=== PATIENT | female | born 1955 | race Caucasian/White ===

== ENCOUNTER 2022-02-09 08:53 | Emergency (ER) | payer OTHER ==
[~2022-02-09] VITALS: Ht 172.7 cm; Wt 62.6 kg
[~2022-02-09 08:53] MED LIST: Crutch1 EACH MISC; Percocet 5-3251 EACH PO
[2022-02-09 09:30] LABS: BASOPHILS ABSOLUTE AUTO 0.05 K/mm3 (0.00-0.23); BASOPHILS PERCENT AUTO 1 % (0-2); EOSINOPHILS ABSOLUTE AUTO 0.14 K/mm3 (0.00-0.68); EOSINOPHILS PERCENT AUTO 2 % (0-6); Hematocrit 40.3 % (33.0-51.0); Hemoglobin 13.6 g/dL (11.5-16.0); IMMATURE GRAN ABSOLUTE AUTO 0.01 K/mm3 (0.00-0.10); IMMATURE GRAN PERCENT AUTO 0 % (0-1); LYMPHOCYTES ABSOLUTE AUTO 1.98 K/mm3 (0.84-5.20); LYMPHOCYTES PERCENT AUTO 27 % (21-46); MONOCYTES ABSOLUTE AUTO 0.56 K/mm3 (0.16-1.47); MONOCYTES PERCENT AUTO 8 % (4-13); Mean Corpuscular HGB 31.3 pg (26.0-34.0); Mean Corpuscular HGB Conc 33.7 g/dL (31.5-36.5); Mean Corpuscular Volume 93 fL (80-100); Mean Platelet Volume 10.4 fL (9.1-12.4); NEUTROPHILS ABSOLUTE AUTO 4.61 K/mm3 (1.96-9.15); NEUTROPHILS PERCENT AUTO 63 % (41-73); Platelet Count 320 K/mm3 (150-400); RDW Coefficient Variation 13.8 % (11.7-14.2); RDW Standard Deviation 47.3 fL (35.1-46.3); Red Blood Cell Count 4.34 M/mm3 (3.80-5.20); White Blood Cell Count 7.35 K/mm3 (4.00-11.30)
[2022-02-09 09:47] LABS: Albumin/Globulin Ratio 1.2 (0.8-1.8); Bilirubin, Total 0.3 mg/dL (0.1-1.0); Bun/Creatinine Ratio 31.2 (12.0-20.0); Calcium, Blood 8.8 mg/dL (8.5-10.1); Creatinine, Blood 0.58 mg/dL (0.40-1.00); Globulin, Blood 3.3 g/dL (2.2-4.0); Total Protein, Blood 7.3 g/dL (6.4-8.2)
[2022-02-09] MEDS ORDERED: IBUP800 PO (09:58)
[2022-02-09] MEDS ORDERED: ASPI81CH PO (09:59)
== END 2022-02-09 15:30 | disposition home or self-care (01) ==
LOC: ER 08:53
PROVIDERS: Student in an Organized Health Care Education/Training Program
DX: R00.0 Tachycardia, unspecified (principal); R00.2 Palpitations; Z91.018 Allergy to other foods; Z79.899 Other long term (current) drug therapy; Z79.82 Long term (current) use of aspirin
CPT/HCPCS: 36415; 71046; 80053; 83735; 84484; 85025; 93005; 93010; 93246

== ENCOUNTER 2022-07-01 07:27 | Day surgery (SDC) | payer OTHER ==
[~2022-07-01] VITALS: Ht 172.7 cm; Wt 65.5 kg
[~2022-07-01 07:27] MED LIST changes: +ASPI81CH PO; +IBUP800 PO
[2022-07-01] MEDS ORDERED: NEBI5 PO (08:25)
--- NOTE | 2022-07-01 09:40 | NUR ---
07/01/22 0940 Melinda Rico 0.15ML OF EPI 1MG/ML ADDED TO ROPIVICAINE 0.5% TO CREATE A LOCAL SOLUTION OF ROPIVICAINE 0.5% WITH EPI 1:200,000.
[2022-07-01 10:30] VITALS: BP 113/68
--- NOTE | 2022-07-01 11:36 | NUR ---
07/01/22 1136 Chadd Schaeffer PT REPORTED 5/10 PAIN UPON DISCHARGE. SHE DESCRIBED PAIN TOLERABLE, 0/10 ON FLACC SCALE, AND REFUSED PAIN MEDICATION.
== END 2022-07-01 11:17 | disposition home or self-care (01) ==
LOC: ORSCSDS 07:27
PROVIDERS: Podiatrist Foot & Ankle Surgery
PROC: 01BG0ZZ Excision of Tibial Nerve, Open Approach (ICD-10-PCS; principal; 2022-07-01 09:00)
PROC: 0QSQ04Z Reposition Right Toe Phalanx with Internal Fixation Device, Open Approach (ICD-10-PCS; principal; 2022-07-01 09:00)
PROC: 0QSN04Z Reposition Right Metatarsal with Internal Fixation Device, Open Approach (ICD-10-PCS; principal; 2022-07-01 09:00)
DX: M21.621 Bunionette of right foot (principal); G57.61 Lesion of plantar nerve, right lower limb; M79.671 Pain in right foot; I10 Essential (primary) hypertension; G47.33 Obstructive sleep apnea (adult) (pediatric); Z79.899 Other long term (current) drug therapy
CPT/HCPCS: C1713; C1769; J0171; J0690; J1100; J1885; J2001; J2370; J2405; J2704; J2795; J3010; J7120

== ENCOUNTER 2023-09-17 13:40 | Emergency (ER) | payer OTHER ==
[~2023-09-17] VITALS: Ht 172.7 cm; Wt 64.4 kg
[~2023-09-17 13:40] MED LIST changes: +NEBI5 PO
[2023-09-17 13:49] VITALS: BP 172/85
== END 2023-09-17 15:01 | disposition home or self-care (01) ==
LOC: ER 13:40
DX: S50.12XA Contusion of left forearm, initial encounter (principal); W22.8XXA Striking against or struck by other objects, initial encounter; Z79.899 Other long term (current) drug therapy; Z91.018 Allergy to other foods
CPT/HCPCS: 73090; 99283-25

== ENCOUNTER → 2024-06-12 | Outpatient (CLI) | payer MEDICARE ==
[2024-06-19 16:17] LABS: HPV HIGH RISK BY TMA Not Detected; HPV SOURCE Cervical
== END ==
LOC: LAB 08:33 → LAB SHORT 08:33
PROVIDERS: Obstetrics & Gynecology
DX: Z01.419 Encounter for gynecological examination (general) (routine) without abnormal findings (principal)
CPT/HCPCS: 87624; G0123